=== PATIENT | male | born 1995 | race African-American/Black ===

== ENCOUNTER 2020-01-22 11:48 | Emergency (ER) | payer BC ==
[2020-01-22] MEDS ORDERED: Cyclobenzaprine 10 MG Tab PO ONE (12:50)
[2020-01-22] MEDS ORDERED: Ketorolac 60 MG/2 ML SDV IM ONE (12:50)
--- NOTE | 2020-01-22 12:57 | EDM.PDOC ---
ED HPI GENERAL MEDICAL PROBLEM - General Chief Complaint: Upper Extremity Injury/Pain Stated Complaint: L ARM NUMBNESS Time Seen by Provider: 01/22/20 12:01 Source of Information: Reports: Patient History Limitations: Reports: No Limitations - History of Present Illness INITIAL COMMENTS - FREE TEXT/NARRATIVE: Patient is a 24-year-old male presenting to the emergency department with complaints of left lateral neck pain extending into his left shoulder and down his arm. He states he woke this morning with some pain in that area and has been getting progressively worse throughout the day. He does have some mild numbness in his left upper arm as well. He denies any history of chronic neck pain and has had no recent injuries. He does do heavy lifting at work. Left Arm Pain Score (Numeric/FACES): 9 - Related Data Allergies Allergy/AdvReac Type Severity Reaction Status Date / Time No Known Allergies Allergy Verified 01/22/20 12:01 Home Meds: Home Meds Cyclobenzaprine [Flexeril] 10 mg PO TID PRN #10 tab 01/22/20 [Rx] Naproxen [Naprosyn] 500 mg PO Q12HR 5 Days #10 tab 01/22/20 [Rx] Past Medical History - Past Health History Medical/Surgical History: Denies Medical/Surgical History Social & Family History - Tobacco Use Smoking Status *Q: Current Every Day Smoker Years of Tobacco use: 5 Packs/Tins Daily: 0.1 - Caffeine Use Caffeine Use: Reports: Energy Drinks, Soda - Recreational Drug Use Recreational Drug Use: No Review of Systems - Review of Systems Review Of Systems: See Below Constitutional: Reports: No Symptoms Eyes: Reports: No Symptoms Ears: Reports: No Symptoms Nose: Reports: No Symptoms Mouth/Throat: Reports: No Symptoms Respiratory: Reports: No Symptoms Cardiovascular: Reports: No Symptoms GI/Abdominal: Reports: No Symptoms Genitourinary: Reports: No Symptoms Musculoskeletal: Reports: Neck Pain, Shoulder Pain, Arm Pain Neurological: Reports: Numbness (mild to left upper arm). Denies: Headache Psychiatric: Reports: No Symptoms ED EXAM, GENERAL - Physical Exam Exam: See Below General Appearance: Alert, WD/WN, No Apparent Distress Neck: Normal Inspection, Supple, Full Range of Motion, Tender Lateral (left lateral tenderness extending into the left shoulder along the trapezius muscle. Pain radiates to left arm, but he denies tenderness over the biceps muscle. Postive left sided Spurling compression test.). No: Limited Range of Motion, Tender Midline Respiratory/Chest: No Respiratory Distress, Lungs Clear, Normal Breath Sounds, No Accessory Muscle Use, Chest Non-Tender Cardiovascular: Normal Peripheral Pulses, Regular Rate, Rhythm, No Edema, No Gallop, No JVD, No Murmur, No Rub Back Exam: Normal Inspection, Full Range of Motion, NT Extremities: Normal Inspection, Normal Range of Motion (pain with ROM of left shoulder), Non-Tender, Normal Capillary Refill, No Pedal Edema Neurological: Alert, Oriented, CN II-XII Intact, Normal Cognition, Normal Gait, Normal Reflexes, No Motor/Sensory Deficits Psychiatric: Normal Affect, Normal Mood Skin Exam: Warm, Dry, Intact, Normal Color, No Rash Course - Vital Signs Last Recorded V/S: Last Vital Signs Temp 97.4 F 01/22/20 11:59 Pulse 54 L 01/22/20 11:59 Resp 18 01/22/20 11:59 BP 110/70 01/22/20 11:59 Pulse Ox 100 01/22/20 11:59 - Orders/Labs/Meds Orders: Active Orders 24 hr Category Date Time Status Cervical Spine 2V or 3V [CR] Stat Exams 01/22/20 12:29 Taken Shoulder Comp Lt [CR] Stat Exams 01/22/20 12:30 Taken Meds: Medications Discontinued Medications Generic Name Dose Route Start Last Admin Trade Name Freq PRN Reason Stop Dose Admin Cyclobenzaprine HCl 10 mg 01/22/20 12:50 01/22/20 13:23 Flexeril PO 01/22/20 12:51 10 mg ONETIME ONE Administration Ketorolac Tromethamine 60 mg 01/22/20 12:50 01/22/20 13:23 Toradol IM 01/22/20 12:51 Not Given ONETIME ONE Naproxen 500 mg 01/22/20 13:26 01/22/20 13:30 Naprosyn PO 01/22/20 13:27 500 mg ONETIME ONE Administration - Re-Assessments/Exams Free Text/Narrative Re-Assessment/Exam: 01/22/20 13:32 X-ray of the cervical spine and shoulder show no abnormalities on my review, however the official radiologist read is pending. Patient refused the Toradol injection as he did not want an injection in his gluteus viri muscle. I have ordered him a dose of oral Naprosyn instead. I will send a prescription for Naprosyn and Flexeril. We will provide a note off from work today. Discharge instructions documented. Departure - Departure Time of Disposition: 13:34 Disposition: Home, Self-Care 01 Condition: Good Clinical Impression: Cervical radiculopathy - Discharge Information *PRESCRIPTION DRUG MONITORING PROGRAM REVIEWED*: No *COPY OF PRESCRIPTION DRUG MONITORING REPORT IN PATIENT ROSSY: No Prescriptions: Cyclobenzaprine [Flexeril] 10 mg PO TID PRN #10 tab PRN Reason: Muscle Spasm Naproxen [Naprosyn] 500 mg PO Q12HR 5 Days #10 tab Instructions: Cervical Radiculopathy Referrals: PCP,None [Primary Care Provider] - Forms: ED Department Discharge, ED Return to Work/School Form Additional Instructions: You were seen in the emergency department today for pain to your left lateral neck radiating down to your left shoulder and arm. While in the ER, you received a dose of Flexeril and Naprosyn. X-rays were completed on your neck and shoulder and was found to be normal. You been given a prescription for Naprosyn for pain and Flexeril for muscle spasm. Take these medications as prescribed. Applying heat to the area will also be beneficial to help reduce the muscle spasm. A note has been provided off from work for you today. Recommend rest and gentle stretching and range of motion exercises to loosen up the muscles. Return to the ER as needed. Sepsis Event Note (ED) - Evaluation Sepsis Screening Result: No Definite Risk - Focused Exam Vital Signs: Vital Signs Temp Pulse Resp BP Pulse Ox 01/22/20 11:59 97.4 F 54 L 18 110/70 100 - My Orders Last 24 Hours: My Active Orders 01/22/20 12:29 Cervical Spine 2V or 3V [CR] Stat 01/22/20 12:30 Shoulder Comp Lt [CR] Stat - Assessment/Plan Last 24 Hours: My Active Orders 01/22/20 12:29 Cervical Spine 2V or 3V [CR] Stat 01/22/20 12:30 Shoulder Comp Lt [CR] Stat
[2020-01-22] MEDS ORDERED: Naproxen 500 MG Tab PO ONE (13:26)
--- NOTE | 2020-01-22 14:54 | CR ---
Cervical spine: AP, lateral and odontoid views of the cervical spine were obtained. Comparison: No previous study. Vertebral body heights and disc spaces are maintained. Small detached spur is noted off the anterior and superior endplate of C5. Prevertebral soft tissues are normal. Minimal scoliosis is noted. No subluxation or fracture is seen. Impression: 1. Small detached spur off the anterior and superior endplate of C5. 2. Minimal scoliosis. 3. No additional abnormality is seen. Diagnostic code #2 This report was dictated in MDT
--- NOTE | 2020-01-22 14:55 | CR ---
Left shoulder: 3 views left shoulder were obtained. Comparison: No previous shoulder study. Acromioclavicular and glenohumeral joints are normal. No acute fracture or other bony abnormality is appreciated. No abnormal soft tissue calcifications are seen. Impression: 1. No abnormality is appreciated on 3 view left shoulder study. Diagnostic code #1 This report was dictated in MDT
== END 2020-01-22 14:00 | disposition home or self-care (01) ==
LOC: JD.ED 11:48
DX: M54.12 Radiculopathy, cervical region (principal); F17.210 Nicotine dependence, cigarettes, uncomplicated
CPT/HCPCS: 72040; 73030; 99284; A9270; 99283

== ENCOUNTER 2020-01-31 15:58 | Emergency (ER) | payer BC ==
--- NOTE | 2020-01-31 16:56 | EDM.PDOC ---
ED HPI GENERAL MEDICAL PROBLEM - General Chief Complaint: Upper Extremity Injury/Pain Stated Complaint: SHOULDER PAIN NOT BETTER Time Seen by Provider: 01/31/20 16:41 Source of Information: Reports: Patient - History of Present Illness INITIAL COMMENTS - FREE TEXT/NARRATIVE: Patient is a 24-year-old male who presents to the ED complaining of pain to the left trap region. States he was evaluated in the emergency department on 01/22/2020 he was diagnosed with cervical radiculopathy. Patient states the pain is to the left trap region and extends up his neck and down the midportion of his upper arm especially when he pushes on the area of pain and also with movement of his neck from left to right. With lifting items at work causes increased discomfort. He has been using Flexeril and also naproxen with some relief. Denies Midline neck pain, n/t, weakness, or any additional complaints. Left Shoulder Pain Score (Numeric/FACES): 7 - Related Data Allergies Allergy/AdvReac Type Severity Reaction Status Date / Time No Known Allergies Allergy Verified 01/22/20 12:01 Home Meds: Home Meds Cyclobenzaprine [Flexeril] 10 mg PO TID PRN #10 tab 01/22/20 [Rx] Naproxen [Naprosyn] 500 mg PO Q12HR 5 Days #10 tab 01/22/20 [Rx] Past Medical History - Past Health History Medical/Surgical History: Denies Medical/Surgical History Social & Family History - Tobacco Use Smoking Status *Q: Current Every Day Smoker Years of Tobacco use: 10 Packs/Tins Daily: 1.5 - Caffeine Use Caffeine Use: Reports: Energy Drinks - Recreational Drug Use Recreational Drug Use: No Review of Systems - Review of Systems Review Of Systems: Comprehensive ROS is negative, except as noted in HPI. ED EXAM, GENERAL - Physical Exam Exam: See Below Exam Limited By: No Limitations General Appearance: Alert, WD/WN, No Apparent Distress Ears: Hearing Grossly Normal Nose: Normal Inspection Throat/Mouth: Normal Voice, No Airway Compromise Head: Atraumatic, Normocephalic Neck: Normal Inspection, Supple, Non-Tender (Midline lateral), Full Range of Motion. No: Limited Range of Motion, Tender Lateral, Tender Midline Respiratory/Chest: No Respiratory Distress, Lungs Clear, Normal Breath Sounds, No Accessory Muscle Use, Chest Non-Tender Cardiovascular: Normal Peripheral Pulses, Regular Rate, Rhythm Peripheral Pulses: 2+: Radial (L) Back Exam: Normal Inspection, Full Range of Motion, Other (Tenderness noted along the left trap region with a small knot present. With palpation patient does have some increasing pain with discontinuing the palpation and gentle massage pain is somewhat relieved. There is no pain rating down his left arm. There is no weakness discrepancies to his upper extremities. Pulses are intact. Sensation is intact as well.). No: Paraspinal Tenderness, Vertebral Tenderness Extremities: Normal Inspection, Normal Range of Motion, Non-Tender Neurological: Alert, Oriented, Normal Cognition, No Motor/Sensory Deficits Psychiatric: Normal Affect, Normal Mood Skin Exam: Warm, Dry, Intact, Normal Color, No Rash Course - Vital Signs Last Recorded V/S: Last Vital Signs Temp 98.1 F 01/31/20 16:11 Pulse 68 01/31/20 16:11 Resp 16 01/31/20 16:11 BP 117/68 01/31/20 16:11 Pulse Ox 99 01/31/20 16:11 - Re-Assessments/Exams Free Text/Narrative Re-Assessment/Exam: Patient has a muscle strain to the left trap. Treatment will consist of Flexeril and naproxen. In addition may utilize gentle massage, heat, ice, icy hot, Voltaren gel, and also biofreeze. Departure - Departure Time of Disposition: 16:55 Disposition: Home, Self-Care 01 Condition: Good Clinical Impression: Trapezius muscle strain Qualifiers: Encounter type: subsequent encounter Laterality: left Qualified Code(s): S46.812D - Strain of other muscles, fascia and tendons at shoulder and upper arm level, left arm, subsequent encounter - Discharge Information Instructions: Muscle Strain, [id number] Referrals: PCP,None [Primary Care Provider] - Forms: ED Department Discharge, ED Return to Work/School Form Additional Instructions: Continue taking the naproxen and cyclobenzaprine as prescribed. I would suggest using heat to the affected area with gentle massage and ice to follow. Refrain from any activities that cause worsening pain. Follow-up with PCP in the next week to 10 days if symptoms persist. Sepsis Event Note (ED) - Evaluation Sepsis Screening Result: No Definite Risk
== END 2020-01-31 17:17 | disposition home or self-care (01) ==
LOC: JD.ED 15:58
DX: S46.812A Strain of other muscles, fascia and tendons at shoulder and upper arm level, left arm, initial encounter (principal); F17.210 Nicotine dependence, cigarettes, uncomplicated; X58.XXXA Exposure to other specified factors, initial encounter
CPT/HCPCS: 99282